=== PATIENT | female | born 1950 | race African-American/Black ===

== ENCOUNTER 2019-11-14 08:08 | Inpatient (IN) ==
[2019-11-14] MEDS ORDERED: ASPIRIN 325 MG TABLET PO STA (09:55)
[2019-11-14 10:08] LABS: Basophils # 0.1 10*3/uL (0.0-0.2); Basophils % 0.4 % (0.0-0.8); Eosinophils # 0.2 10*3/uL (0.0-0.87); Eosinophils % 1.6 % (0.00-10.9); Hemoglobin 11.6 GM/DL (12.0-16.0); Immature Granulocytes % 0.4 %; Immature Granulocytes Absolute 0.05 #; Lymphocytes # 2.3 10*3/uL (1.4-4.0); Lymphocytes % 20.2 % (21.3-54.2); Mean Corpuscular HGB Conc 31.4 GM/DL (32-36); Mean Corpuscular Volume 97.4 FL (87-102); Mean Platelet Volume 12.8 FL (9.6-12.0); Monocytes % 7.8 % (1.7-12.7); Neutrophils % 69.6 % (38.7-73.9); Platelet Count 168 T/CUMM (130-400); Red Cell Distribution Width 13.4 % (9.3-17.3); White Blood Count 11.4 T/CUMM (4-12)
[2019-11-14 10:15] LABS: PT Patient Result 10.8 SECS (9.8-11.9); Partial Thromboplastin Time 33.1 SECS (23.9-33.8)
[2019-11-14 10:19] LABS: Albumin 3.8 G/DL (3.4-5.0); Bilirubin,Total 0.5 MG/DL (0.2-1.0); Calcium 8.8 MG/DL (8.5-10.1); Osmolality,Calculated 281.2 MOS/KG (273-304); Total Protein 8.2 G/DL (6.4-8.3)
[2019-11-14] MEDS ORDERED: PIPERACILLIN/TAZOBACTAM 3,375 MG in SODIUM CHLORIDE 0.9% 100 ML IV STA (11:14)
[2019-11-14] MEDS ORDERED: PIPERACILLIN/TAZOBACTAM 3,375 MG VIAL IV ONE (12:05)
[2019-11-14] MEDS ORDERED: GLUCAGON 1 MG VIAL IM PRN (13:50)
[2019-11-14] MEDS ORDERED: ACETAMINOPHEN 325 MG TABLET PO PRN (13:50)
[2019-11-14] MEDS ORDERED: DEXTROSE 50% 25 GM/50 ML VIAL IV PRN (13:50)
[2019-11-14] MEDS ORDERED: ONDANSETRON 4 MG/2 ML VIAL IV PRN (13:50)
[2019-11-14 14:40] LABS: Risk Ratio 3.45; VLDL CHOLESTEROL 39.2 MG/DL
[2019-11-14] MEDS: CARBIDOPA/LEVODOPA 25-100 MG TABLET PO SCH ×2 (15:05→21:34)
[2019-11-14] MEDS: PANTOPRAZOLE 40 MG TABLET PO SCH (15:05)
[2019-11-14] MEDS: ENOXAPARIN 30 MG/0.3 ML SYRINGE SUBCUT SCH (15:05)
[2019-11-14] MEDS: INSULIN REGULAR 100 UNIT/ML SUBCUT SCH ×2 (18:33→21:34)
[2019-11-14] MEDS: SEVELAMER CARBONATE 800 MG TABLET PO SCH (18:34)
[2019-11-14] MEDS: CINACALCET 30 MG TABLET PO SCH (18:34)
[2019-11-14] MEDS: PROPRANOLOL 20 MG TABLET PO SCH (21:34)
[2019-11-14] MEDS: DOCUSATE SODIUM 100 MG CAPSULE PO SCH (21:34)
[2019-11-14] MEDS: PIPERACILLIN/TAZOBACTAM 3,375 MG in SODIUM CHLORIDE 0.9% 100 ML IV SCH (23:30)
[2019-11-15 05:59] LABS: Basophils % 0.3 % (0.0-0.8); Eosinophils # 0.2 10*3/uL (0.0-0.87); Eosinophils % 1.8 % (0.00-10.9); Hematocrit 31.1 VOL% (35.7-47.0); Immature Granulocytes % 0.5 %; Immature Granulocytes Absolute 0.05 #; Lymphocytes # 2.4 10*3/uL (1.4-4.0); Lymphocytes % 23.3 % (21.3-54.2); Mean Corpuscular HGB Conc 32.2 GM/DL (32-36); Mean Corpuscular Volume 96.6 FL (87-102); Mean Platelet Volume 12.6 FL (9.6-12.0); Monocytes % 11.2 % (1.7-12.7); Neutrophils % 62.9 % (38.7-73.9); Platelet Count 143 T/CUMM (130-400); Red Blood Count 3.22 MC/CUMM (3.8-5.5); Red Cell Distribution Width 13.4 % (9.3-17.3); White Blood Count 10.3 T/CUMM (4-12)
[2019-11-15 06:45] LABS: Alanine Aminotransferase < 9 U/L (13-56); Albumin 2.9 G/DL (3.4-5.0); Alkaline Phosphatase 88 U/L (45-117); Aspartate Amino Transferase 8 U/L (0-37); Blood Urea Nitrogen 52 MG/DL (7-18); Calcium 8.8 MG/DL (8.5-10.1); Estimated Glom Filtration Rate 4 ML/MIN; Glucose 94 MG/DL (74-106); Osmolality,Calculated 283.1 MOS/KG (273-304); Total Protein 7.3 G/DL (6.4-8.3)
[2019-11-15] MEDS: PANTOPRAZOLE 40 MG TABLET PO SCH (08:38)
[2019-11-15] MEDS: CARBIDOPA/LEVODOPA 25-100 MG TABLET PO SCH ×3 (08:38→21:14)
[2019-11-15] MEDS: PROPRANOLOL 20 MG TABLET PO SCH ×2 (08:38→21:14)
[2019-11-15] MEDS: allopurinoL 100 MG TABLET PO SCH (08:39)
[2019-11-15] MEDS: CETIRIZINE 10 MG TABLET PO SCH (08:39)
[2019-11-15] MEDS: ATORVASTATIN 10 MG TABLET PO SCH (08:39)
[2019-11-15] MEDS: ASPIRIN EC 81 MG TABLET PO SCH (08:39)
[2019-11-15] MEDS: DOCUSATE SODIUM 100 MG CAPSULE PO SCH ×2 (08:39→21:14)
[2019-11-15] MEDS: SEVELAMER CARBONATE 800 MG TABLET PO SCH ×3 (08:42→17:00)
[2019-11-15] MEDS: INSULIN REGULAR 100 UNIT/ML SUBCUT SCH ×4 (08:43→21:16)
[2019-11-15] MEDS: PIPERACILLIN/TAZOBACTAM 3,375 MG in SODIUM CHLORIDE 0.9% 100 ML IV SCH ×2 (10:55→22:34)
[2019-11-15] MEDS: ENOXAPARIN 30 MG/0.3 ML SYRINGE SUBCUT SCH (13:10)
[2019-11-15] MEDS: CINACALCET 30 MG TABLET PO SCH (17:01)
[2019-11-16 05:26] LABS: Basophils # 0.1 10*3/uL (0.0-0.2); Basophils % 0.5 % (0.0-0.8); Eosinophils # 0.3 10*3/uL (0.0-0.87); Eosinophils % 2.9 % (0.00-10.9); Hematocrit 30.6 VOL% (35.7-47.0); Hemoglobin 9.4 GM/DL (12.0-16.0); Immature Granulocytes % 0.5 %; Immature Granulocytes Absolute 0.05 #; Lymphocytes # 2.6 10*3/uL (1.4-4.0); Lymphocytes % 27.5 % (21.3-54.2); Mean Corpuscular HGB Conc 30.7 GM/DL (32-36); Mean Corpuscular Volume 97.5 FL (87-102); Mean Platelet Volume 12.4 FL (9.6-12.0); Monocytes % 10.2 % (1.7-12.7); Neutrophils % 58.4 % (38.7-73.9); Platelet Count 140 T/CUMM (130-400); Red Blood Count 3.14 MC/CUMM (3.8-5.5); Red Cell Distribution Width 13.4 % (9.3-17.3); White Blood Count 9.3 T/CUMM (4-12)
[2019-11-16 05:48] LABS: Calcium 8.7 MG/DL (8.5-10.1); Osmolality,Calculated 277.1 MOS/KG (273-304)
[2019-11-16] MEDS: INSULIN REGULAR 100 UNIT/ML SUBCUT SCH ×2 (08:00→13:40)
[2019-11-16] MEDS: SEVELAMER CARBONATE 800 MG TABLET PO SCH ×2 (09:43→13:48)
[2019-11-16] MEDS: PANTOPRAZOLE 40 MG TABLET PO SCH (09:44)
[2019-11-16] MEDS: ASPIRIN EC 81 MG TABLET PO SCH (09:44)
[2019-11-16] MEDS: CETIRIZINE 10 MG TABLET PO SCH (09:44)
[2019-11-16] MEDS: DOCUSATE SODIUM 100 MG CAPSULE PO SCH (09:44)
[2019-11-16] MEDS: ATORVASTATIN 10 MG TABLET PO SCH (09:44)
[2019-11-16] MEDS: PROPRANOLOL 20 MG TABLET PO SCH (09:44)
[2019-11-16] MEDS: allopurinoL 100 MG TABLET PO SCH (09:44)
[2019-11-16] MEDS: CARBIDOPA/LEVODOPA 25-100 MG TABLET PO SCH ×2 (09:44→14:07)
[2019-11-16 10:18] LABS: Bacteria,Urine Few /HPF (Few); Bilirubin,Urine Negative (Negative); Blood, Urine Small mg/dL (Negative); Glucose,Urine (UA) Negative (Negative); Ketones,Urine Negative (Negative); Nitrite,Urine Negative (Negative); Protein,Urine 100 MG/DL; RBC,Urine 8 /HPF (0-4); Squamous Epithelial Cell,Urine Many /HPF (0-10); Urine Appearance CLOUDY (Clear); Urine Color Yellow (Yellow); Urine Specific Gravity 1.024 (1.001-1.035); Urine Urobilinogen < 2.0 EU/DL (0.2-1.0); WBC,Urine 50 /HPF (0-6)
[2019-11-16] MEDS: PIPERACILLIN/TAZOBACTAM 3,375 MG in SODIUM CHLORIDE 0.9% 100 ML IV SCH (10:53)
[2019-11-16 14:10] VITALS: BP 94/43
[2019-11-16] MEDS ORDERED: APIXABAN 2.5 MG TABLET PO SCH (21:00)
== END 2019-11-16 16:18 | disposition home or self-care (01) | DRG 308 ==
LOC: N.ED 08:08 → N.TELEN 13:50
PROVIDERS: ADMIT Internal Medicine; ATTEND Internal Medicine